=== PATIENT | female | born 1985 | race Caucasian/White ===

== ENCOUNTER → 2016-10-06 | Outpatient (CLI) | payer OTHER ==
--- NOTE | 2016-10-06 17:26 | US ---
October 06, [address] Coreas, Thank you for allowing us to see your patient Yola Szymanski for growth evaluation. As you kno w, she is a 31-year-old 1. Her due date is 12/11/2016 based on LMP consistent with first trim luz ultrasound. Her current gestational age based on this dating is 30 weeks 4 days. Her history is significant for chronic hypertension not requiring medication and a known maternal translocation. ULTRASOUND: Number of fetuses: 1 Placental location: anterior, no previa presentation: breech Heart Rate: 153 bpm Cervix: 3.8 cm viewed transabdominally Maximum vertical pocket: 3.9 cm Measurements: Biparietal diameter: 76 mm 30 weeks, 5 days Head circumference: 285 mm 31 weeks, 2 days Abdominal circumference: 267 mm 30 weeks, 6 days Femur length: 56 mm 29 weeks, 4 days Humerus length: 51 mm 30 weeks, 0 days Transcerebellar diameter: 39 mm 31 weeks, 5 days Average ultrasound age: 30 weeks, 5 days Estimated weight: 1574 gm weight percentile: 33 % ANATOMY anatomy was previously assessed. Today the following structures were visualized and appeared n ormal: lateral ventricle measuring 7 mm, 4-chamber heart view, left and right ventricular outflow tr acts, stomach, bilateral kidneys, bladder. IMPRESSION: 1. Intrauterine at 30 weeks, 4 days; UMER of 12/11/2016. 2. growth is appropriate size for dates. 3. anatomy was previously assessed and today's ultrasound continues to provide reassurance of normal appearing anatomy. 4. Chronic hypertension. Blood pressure in our office today was 123/84. She is not on any medicati ons for her blood pressure, but is on daily low-dose aspirin. She is scheduled to start NSTs in 2 we eks. We reviewed risks for preeclampsia and IUGR. RECOMMENDATIONS: -continue daily baby aspirin -one final growth ultrasound at ~34 weeks -delivery at 39 weeks if she remains stable Thank you for allowing us the opportunity to evaluate your patient. Should you have any further ques tions or concerns please do not hesitate to contact me. Approximately 15 minutes were spent with the patient, of which 10 minutes were spent in [id number] consultation discussing hypertension in . Renetta Moore M.D., Ph.D. Diagnosis Department of Obstetrics and Gynecology [facility]
--- NOTE | 2016-10-07 00:32 | US ---
Follow-Up Obstetrical Sonography CLINICAL HISTORY: 31-year-old female who presents for follow-up anatomic survey and biometry a ssessment, with an amniocentesis revealing that the fetus does not have a maternal translocation. Th ere is also a maternal history of chronic hypertension. TECHNIQUE: A curvilinear 5-megahertz transducer was used to sonographically evaluate the fetus and t he placenta. M-mode Doppler was used. Dr. Renetta Moore is present. COMPARISON STUDY: Obstetrical sonography, dated September 05, 2016. LMP: March 06, 2016, indicating an age of 30 weeks, 4 days, and an estimated date of delivery of Gio 2016. FINDINGS: Again, there is a single viable intrauterine gestation, with the fetus currently breech in presentation. The placenta is anteriorly situated, with no previa. The maternal cervical length me asures 3.9 cm, measured transabdominally. The amniotic fluid volume is appropriate, with a maximal v ertical pocket of 4 cm. The heart rate is 153 bpm. A anatomic survey has been performed in the past. On today's study, the lateral ventricular di ameter is normal, measuring 7.1 mm. There is a four- chambered heart, with interventricular septum a nd right and left outflow tracts, stomach, right and left kidneys, and urinary bladder. The ge nder is believed to be female. biometry is as follows: The biparietal diameter is 76 mm, corresponding to an age of 30 weeks, 5 days, +/- 3 weeks, 1 day, wh ich is at the 42nd percentile. The head circumference is 285 mm, corresponding to an age of 31 weeks, 2 days, +/- 3 weeks, 0 days, w hich is at the 32nd percentile. The abdominal circumference is 267 mm, corresponding to an age of 30 weeks, 6 days, +/- 3 weeks, 0 da ys, which is at the 54th percentile. The femur length is 56 mm, corresponding to an age of 29 weeks, 4 days, +/- 2 weeks, 1 day, which is at the 12th percentile. The humerus length is 51 mm, corresponding to an age of 30 weeks, 0 days. The transverse cerebellar diameter is 39 mm, corresponding to an age of 31, weeks 5 days, +/- 1 week, 2 days. The composite gestational age is 30 weeks, 5 days, which is concordant with menstrual dating and demo nstrating appropriate interval growth since the previous study. The estimated weight is 1574 gm, +/- 230 gm, which is 3 lbs., 8 oz., +/- 8 ounces, which is at the 33rd percentile. The head circumference to abdominal circumference ratio is normal, measuring 1.07. The femur length to biparietal diameter ratio is 73%, which is normal. The femur length to abdominal circumference ratio is normal, measuring 21%. IMPRESSION: There is a single viable intrauterine gestation, with no overt structural anomaly having concordant biometry and appropriate interval growth since September 05, 2016. Please also refer to Dr. Moore' separate assessments and specific recommendations for follow up.
== END ==
LOC: FIMAGING 14:27
PROVIDERS: ATTEND Obstetrics & Gynecology
DX: O10.013 Pre-existing essential hypertension complicating pregnancy, third trimester (principal); Z3A.30 30 weeks gestation of pregnancy; Z82.79 Family history of other congenital malformations, deformations and chromosomal abnormalities

== ENCOUNTER → 2016-10-31 | Outpatient (CLI) | payer OTHER ==
--- NOTE | 2016-10-31 15:27 | US ---
October 31, [address] Coreas, Thank you for requesting consultation and a follow up ultrasound for your patient, Mrs. Nicolás alcantar. As you know, Yola is a 31 year old G 1, P 0 . Her due date is 12/11/16 by LMP and [facility]. Her current gestational age based on this dating is is 34 weeks 1 days. She is s een today for a follow up assessment of growth secondary to CHTN. She had one episode of scotomata o carli a week ago that did not recur. She denies headaches. She reports good movement and is rafa eduled for NST following our appointment. Her BP in our office was 134/90. Her most recent labs incl uding 24 hour urine were normal. ULTRASOUND Number of fetuses: 1 Placental location: Anterior presentation: Cephalic Heart Rate: 143 bpm Cervix: Not well-visualized secondary to early gestational age Maximum Vertical Pocket: 3.2 cm Measurements: Biparietal diameter: 84 mm 33 weeks, 6 days Head circumference: 312 mm 35 weeks, 0 days Abdominal circumference: 297 mm 33 weeks, 5 days Femur length: 64 mm 33 weeks, 1 days Humerus length: 57 mm 33 weeks, 1 days Transcerebellar diameter: 44 mm 34 weeks, 2 days Average age by ultrasound: 34 weeks, 0 days Estimated weight: 2242 gm weight percentile: 30 % ANATOMY anatomy was previously assessed. Today the following structures were visualized and appeared n ormal: Stomach, limited views of the four-chamber heart, bladder, lateral ventricle, and bilateral k idneys. IMPRESSION: 1. Intrauterine at 34 weeks, 1 days; UMER of 12/11/16. 2. growth is appropriate size for dates. 3. anatomy was previously assessed and today's ultrasound continues to provide reassurance of normal appearing anatomy. 4. Normal amniotic fluid volume 5. Chronic hypertension RECOMMENDATIONS: I was pleased to review today's ultrasound with your patient. I reassured her that growth is normal at the 30 %ile for this gestational age. The amniotic fluid volume is normal. We performed a review of the anatomy which was limited by gestational age and position, but no overt abnormali ties were noted. Yola is doing well from a blood pressure standpoint and her most recent evaluation for superimpose d preeclampsia was negative. We reviewed signs/symptoms worrisome for preeclampsia and is aware to s anvik your medical attention should she have them. We discussed that only if her BP was severe range w ould she require antihypertensive management (and assessment of preeclampsia). Currently, delivery i s planned at 38 weeks. She knows to continue all care and antepartum testing as you have previously directed. Future ultrasound and consultation is available at your discretion. Thank you for allowing us the opportunity to evaluate your patient. Should you have any further ques tions or concerns please do not hesitate to contact me. Approximately 15 minutes were spent with the patient and 10 minutes were spent in face to face consu ltation. Ivett Lopes MD Direct Support Staff Member Maternal Medicine Diagnosis Department of Obstetrics & Gynecology [facility]
--- NOTE | 2016-10-31 17:31 | US ---
Obstetric Ultrasound History: 31-year-old with estimated gestational age of 34 weeks 1 day and EDC of December 11, 2016. Comparison: OB ultrasound October 06, 2016. Findings: Number: 1 Presentation: Vertex Placental location: Anterior. No previa. Cervix: Obscured by positioning. Maximum vertical pocket: 3.2 cm Biometry: Biparietal diameter: 84 mm 33 weeks, 6 days Head circumference: 312 mm 35 weeks, 0 days Abdominal circumference: 297 mm 33 weeks, 5 days Femur length: 64 mm 33 weeks, 1 days Humerus length: 57 mm 33 weeks, 1 days Transcerebellar diameter: 44 mm 34 weeks, 2 days Average ultrasound age: 34 weeks, 0 days EDC based on today's average ultrasound age: December 12, 2016 Estimated weight is 2242 gms +/- 327 gms. The estimated weight percentile is 30 % based o n previous dating. Detailed anatomic survey was previously performed and is not repeated. heart rate is 143. The left-sided stomach, four-chamber heart, lateral ventricle, posterior fossa, kidneys, and bladde r are visualized and normal. Impression: 1. Living duval . Size concordant with dates. 2. Unremarkable anatomy. Please see separate dictation for consultation performed by Ivett Lopes MD, the same day.
== END ==
LOC: FIMAGING 14:35
PROVIDERS: ATTEND Obstetrics & Gynecology
DX: O16.3 Unspecified maternal hypertension, third trimester (principal); Z3A.34 34 weeks gestation of pregnancy

== ENCOUNTER 2016-11-28 17:22 | Inpatient (IN) | payer OTHER ==
[2016-11-28] MEDS ORDERED: ACETAMINOPHEN 325 MG TAB PO PRN (17:46)
[2016-11-28] MEDS ORDERED: diphenhydrAMINE 25 MG CAP PO PRN (17:47)
[2016-11-28] MEDS ORDERED: CALCIUM CARBONATE 500 MG CHEWABLE TAB PO PRN (17:47)
[2016-11-28] MEDS ORDERED: LABETALOL HCL 100 MG TAB PO ONE ×2 (18:00→20:00)
[2016-11-28] MEDS ORDERED: TERBUTALINE SULFATE 1 MG/ML VIAL IV PRN (18:28)
[2016-11-28] MEDS ORDERED: OXYTOCIN/RINGERS LACTATE 1,000 ML IV PRN (18:28)
[2016-11-28] MEDS ORDERED: LR 1,000 ML IV PRN (18:28)
[2016-11-28 18:54] LABS: % IMMATURE GRANULYOCYTES 0.7 % (0.0-1.1); ABSOLUTE IMMATURE GRANULOCYTES 0.06 10^3/uL (0.00-0.10); ADD DIFF? NO; ADD MORPH? NO; ADD SCAN? NO; ATYPICAL LYMPHOCYTE FLAG 0 (0-99); FRAGMENT RBC FLAG 0 (0-99); HEMATOCRIT 35.1 % (38.0-47.0); HEMOGLOBIN 12.5 g/dL (12.6-16.3); LEFT SHIFT FLG 0 (0-99); LIPEMIA HEMOLYSIS FLAG 90 (0-99); MEAN CELL HEMOGLOBIN 33.1 pg (27.9-34.1); MEAN CELL HEMOGLOBIN CONCENTR. 35.6 g/dL (32.4-36.7); MEAN CELL VOLUME 92.9 fL (81.5-99.8); MEAN PLATELET VOLUME 11.1 fL (8.7-11.7); PLATELET CLUMPS FLAG 0 (0-99); PLATELET COUNT 226 10^3/uL (150-400); RED BLOOD CELL COUNT 3.78 10^6/uL (4.18-5.33); RED CELL DISTRIBUTION WIDTH 13.5 % (11.5-15.2)
[2016-11-28 19:15] LABS: ALANINE AMINOTRANSFERASE 26 IU/L (9-52); ASPARTATE AMINOTRANSFERASE 21 IU/L (14-46); BILIRUBIN,TOTAL 0.5 mg/dL (0.1-1.4); BILIRUBIN-CONJUGATED 0.2 mg/dL (0.0-0.5); BILIRUBIN-UNCONJUGATED 0.3 mg/dL (0.0-1.1); CREATININE 0.7 mg/dL (0.6-1.0); GLOMERULAR FILTRATION RATE > 60; LACTATE DEHYDROGENASE 389 IU/L (313-618); URIC ACID 6.6 mg/dL (2.5-6.8)
[2016-11-28] MEDS ORDERED: LIDOCAINE 1% 30 ML SDV ONE (19:49)
[2016-11-28] MEDS ORDERED: AMMONIA AROMATIC 1 EACH AMP IH ONE (19:49)
[2016-11-28] MEDS ORDERED: OXYTOCIN 10 UNIT/ML VIAL ONE (19:50)
[2016-11-28] MEDS ORDERED: MISOPROSTOL 200 MCG TAB ONE (19:50)
[2016-11-28] MEDS ORDERED: TERBUTALINE SULFATE 1 MG/ML VIAL ONE (19:50)
[2016-11-29] MEDS ORDERED: OXYTOCIN/LR *STANDARD DOSE PROTOCOL IV SCH (04:00)
--- NOTE | 2016-11-29 07:56 | OBPROG ---
OBG Progress Note Assessment/Plan: Assessment: 31 y/o at 38+2 weeks EGA admitted for IOL for CHTN Plan: 1) status reassuring 2) Labor: IOL progressing, diaz bulb still above cervix, but bulging, 3cm dilated. Continue with pitocin. 3) GBS negative 4) CHTN: BP's mild, PIH labs normal. 5) Pain: No issues. 11/29/16 07:53 Subjective: Feels well, feeling ctx but not painful. Objective: 11/28/16 18:30 11/28/16 18:30 Patient ABO/Rh O NEGATIVE 11/28/16 18:30 Uric Acid 6.6 mg/dL (2.5-6.8) 11/28/16 18:30 Total Bilirubin 0.5 mg/dL (0.1-1.4) 11/28/16 18:30 Conjugated Bilirubin 0.2 mg/dL (0.0-0.5) 11/28/16 18:30 Unconjugated Bilirubin 0.3 mg/dL (0.0-1.1) 11/28/16 18:30 AST 21 IU/L (14-46) 11/28/16 18:30 ALT 26 IU/L (9-52) 11/28/16 18:30 Lactate Dehydrogenase 389 IU/L (313-618) 11/28/16 18:30 Temp Pulse Resp BP Pulse Ox 68 166/95 H 11/28/16 20:14 11/28/16 20:14 - SVE Dilation (cm): 3 Effacement (%): Less than 50 Station: -3 Current Contraction Pattern: Regular FHR (bpm): 130 FHR Pattern Variability: Moderate FHR Category: 1 ICD10 Worksheet Patient Problems: Problems Problem Status Onset Chronic hypertension affecting Acute - ICD10 Problem Qualifiers (1) Chronic hypertension affecting
--- NOTE | 2016-11-29 09:11 | OBPROG ---
OBG Progress Note Assessment/Plan: Assessment: 31 y/o at 38+2 weeks EGA admitted for IOL for CHTN Plan: 1) status reassuring 2) Labor: IOL progressing, diaz bulb out, 3-4cm dilated. AROM completed w/ no complications. Continue with pitocin. 3) GBS negative 4) CHTN: BP's mild, PIH labs normal. 5) Pain: No issues. 11/29/16 09:10 Subjective: Pt feeling well. Objective: 11/28/16 18:30 11/28/16 18:30 Patient ABO/Rh O NEGATIVE 11/28/16 18:30 Uric Acid 6.6 mg/dL (2.5-6.8) 11/28/16 18:30 Total Bilirubin 0.5 mg/dL (0.1-1.4) 11/28/16 18:30 Conjugated Bilirubin 0.2 mg/dL (0.0-0.5) 11/28/16 18:30 Unconjugated Bilirubin 0.3 mg/dL (0.0-1.1) 11/28/16 18:30 AST 21 IU/L (14-46) 11/28/16 18:30 ALT 26 IU/L (9-52) 11/28/16 18:30 Lactate Dehydrogenase 389 IU/L (313-618) 11/28/16 18:30 Temp Pulse Resp BP Pulse Ox 68 166/95 H 11/28/16 20:14 11/28/16 20:14 - SVE Dilation (cm): 4 Effacement (%): 50 Station: -3 Current Contraction Pattern: Regular FHR (bpm): 130 FHR Pattern Variability: Moderate FHR Category: 1 Membranes: AROM Amniotic Fluid Color: Clear ICD10 Worksheet Patient Problems: Problems Problem Status Onset Chronic hypertension affecting Acute - ICD10 Problem Qualifiers (1) Chronic hypertension affecting
[2016-11-29] MEDS ORDERED: BUPIVACAINE 0.25% 30 ML SDV ONE (12:17)
[2016-11-29] MEDS ORDERED: fentaNYL 2MCG/ML/BUP 0.1% RTU 100 ML BAG EP ONE (12:17)
[2016-11-29] MEDS ORDERED: PHENYLEPHRINE HCL 100 MCG/ML SYR ONE (12:17)
[2016-11-29] MEDS ORDERED: fentaNYL 100 MCG/2 ML INJ ONE (12:18)
--- NOTE | 2016-11-29 12:56 | OBPROG ---
OBG Progress Note Assessment/Plan: Assessment: 31 y/o at 38+2 weeks EGA admitted for IOL for CHTN Plan: 1) status reassuring w/ cat 1 FHT 2) Labor: Progressing, CX more effaced. Continue with pitocin for induction. 3) GBS negative 4) CHTN: BP's mild, PIH labs normal. 5) Pain: controlled well w/ AALN. 11/29/16 12:55 Subjective: Pt has no complaints now; she just got a ALAN, and her pain is much improved. Objective: 11/28/16 18:30 11/28/16 18:30 Patient ABO/Rh O NEGATIVE 11/28/16 18:30 Uric Acid 6.6 mg/dL (2.5-6.8) 11/28/16 18:30 Total Bilirubin 0.5 mg/dL (0.1-1.4) 11/28/16 18:30 Conjugated Bilirubin 0.2 mg/dL (0.0-0.5) 11/28/16 18:30 Unconjugated Bilirubin 0.3 mg/dL (0.0-1.1) 11/28/16 18:30 AST 21 IU/L (14-46) 11/28/16 18:30 ALT 26 IU/L (9-52) 11/28/16 18:30 Lactate Dehydrogenase 389 IU/L (313-618) 11/28/16 18:30 Temp Pulse Resp BP Pulse Ox 68 166/95 H 11/28/16 20:14 11/28/16 20:14 - SVE Dilation (cm): 4 Effacement (%): 80 Station: -2 Current Contraction Pattern: Regular FHR (bpm): 130 FHR Pattern Variability: Moderate FHR Category: 1 ICD10 Worksheet Patient Problems: Problems Problem Status Onset Chronic hypertension affecting Acute - ICD10 Problem Qualifiers (1) Chronic hypertension affecting
[2016-11-29] MEDS ORDERED: ONDANSETRON 4 MG/2 ML VIAL IVP PRN (13:24)
[2016-11-29] MEDS ORDERED: PHENYLEPHRINE HCL 100 MCG/ML SYR IVP PRN (13:24)
--- NOTE | 2016-11-29 13:28 | POSTANESTH ---
Post Anesthetic Evaluation Cardiovascular Status: Normal, Stable Respiratory Status: Normal, Stable, Similar to Pre-op Cond. Level of Consciousness/Mental Status: Can Participate in Eval, Alert and Oriented Pain Control: Adequate, Prn Tx Ordered Nausea/Vomiting Control: Adequate, Prn Tx Ordered Complications Possibly Related to Anesthesia: None Noted (Tolerated CSE well, stable, comfortable.)
[2016-11-29] MEDS ORDERED: fentaNYL 2MCG/ML/BUP 0.1% RTU 100 ML EP SCH (13:30)
[2016-11-29] MEDS ORDERED: LR 500 ML IV SCH (13:30)
--- NOTE | 2016-11-29 13:31 | PREANESOB ---
Obstetric Pre-Anesthesia Info - General Info Proposed Procedure: Labor and delivery with pitocin. : 1 Para: 0 WBD: 38 - Info Status: Full Term Monitors: External FHR Baseline (bpm): 130 FHR Pattern: Reassuring - Labor Status Cervical Dilation per last OB SVE: 4 Station per last OB SVE: -2 Amniotic Fluid Color: Clear Pitocin: In Use PIH: Moderate Indications for Labor Analgesia: Induction of Labor, Pain Control Labor Epidural: Proposed Anesthesia ROS: Hypertension. Allergies/Adverse Reactions: Allergy/AdvReac Type Severity Reaction Status Date / Time No Known Allergies Allergy Unverified 11/28/16 17:45 Home Medications: Medication Instructions Recorded Aspirin [Aspirin 81mg (*)] DAILY 11/28/16 Labetalol HCl [Trandate 100 mg (*)] 100 mg PO BID 11/28/16 Vit27&Calcium/Iron/FA 1 each PO DAILY 11/28/16 [ Rx 1 Tablet (RX)] Visit Medications: Generic Name Dose Route Start Last Admin Trade Name Freq PRN Reason Stop Dose Admin Acetaminophen 650 mg 11/28/16 17:46 Tylenol PO 05/27/17 17:45 Q4H PRN Pain, Mild/Fever, Can Take PO Calcium Carbonate 1,000 mg 11/28/16 17:47 Tums PO 05/27/17 17:46 Q4H PRN HEARTBURN Diphenhydramine HCl 25 mg 11/28/16 17:47 Benadryl PO 05/27/17 17:46 HS PRN SLEEP/INSOMNIA Lactated Ringer's 1,000 mls @ 0 mls/hr 11/28/16 18:28 11/29/16 04:08 Lr IV 05/27/17 18:27 1,000 mls PRN PRN Administration SEE PROTOCOL CONDITIONS Protocol Per Protocol Oxytocin/Lactated Ringer's 1,000 mls @ 150 mls/hr 11/28/16 18:28 Pitocin 20 Units/Lr (Premix) IV PRN PRN Post- bleeding Oxytocin/Lactated Ringer's 500 mls @ 0 mls/hr 11/29/16 04:00 11/29/16 04:08 Pitocin 30 Units/Lr (Premix) IV 05/28/17 03:59 500 mls CONT NOBLE Administration Protocol Per Protocol Fentanyl/Bupivacaine HCl 100 mls @ 0 mls/hr 11/29/16 13:30 Fentanyl/Bupivacaine/Ns 2 Mcg/Ml 0.1% (Premix EP 12/09/16 13:29 CONT NOBLE Protocol As Directed Lactated Ringer's 500 mls @ 0 mls/hr 11/29/16 13:30 Lr IV 05/28/17 13:29 CONT NOBLE As Directed Ibuprofen 600 mg 11/28/16 18:28 Motrin PO 05/27/17 18:27 Q6HRS PRN post , inflammation Ondansetron HCl 4 mg 11/29/16 13:24 Zofran IVP 05/28/17 13:23 Q4HRS PRN Nausea/Vomiting, Can't Take PO Phenylephrine HCl 100 mcg 11/29/16 13:24 Brice-Synephrine IVP 05/28/17 13:23 .Q2M PRN Hypotension Terbutaline Sulfate 0.25 mg 11/28/16 18:28 Brethine IV 05/27/17 18:27 ONCE PRN Tachysystole Discontinued Medications Generic Name Dose Route Start Last Admin Trade Name Freq PRN Reason Stop Dose Admin Ammonia (Aromatic Spirit) Confirm 11/28/16 19:49 Ammonia Aromatic Administered 11/28/16 19:50 Dose 1 each IH .STK-MED ONE Bupivacaine HCl Confirm 11/29/16 12:17 Sensorcaine 0.25% Sdv Administered 11/29/16 12:18 Dose 30 ml .ROUTE .STK-MED ONE Fentanyl Confirm 11/29/16 12:18 Sublimaze Administered 11/29/16 12:19 Dose 100 mcg .ROUTE .STK-MED ONE Fentanyl/Bupivacaine HCl Confirm 11/29/16 12:17 Fentanyl/Bupivacaine/Ns 2 Mcg/Ml 0.1% (Premix Administered 11/29/16 12:18 Dose 100 ml EP .STK-MED ONE Labetalol HCl 100 mg 11/28/16 18:00 11/28/16 20:10 Trandate PO 11/28/16 18:01 Not Given ONCE ONE Labetalol HCl 100 mg 11/28/16 20:00 11/28/16 20:14 Trandate PO 11/28/16 20:01 100 mg ONCE ONE Administration Lidocaine HCl Confirm 11/28/16 19:49 Lidocaine Hcl 1% Administered 11/28/16 19:50 Dose 30 ml .ROUTE .STK-MED ONE Misoprostol Confirm 11/28/16 19:50 Cytotec Administered 11/28/16 19:51 Dose 1,000 mcg .ROUTE .STK-MED ONE Oxytocin Confirm 11/28/16 19:50 Pitocin Administered 11/28/16 19:51 Dose 20 unit .ROUTE .STK-MED ONE Phenylephrine HCl Confirm 11/29/16 12:17 Brice-Synephrine Administered 11/29/16 12:18 Dose 1,000 mcg .ROUTE .STK-MED ONE Terbutaline Sulfate Confirm 11/28/16 19:50 Brethine Administered 11/28/16 19:51 Dose 1 mg .ROUTE .STK-MED ONE - Anesthesia History Response to Local Anesthetics: Normal - Focused Exam Latest Vital Signs (Nursing): Temp Pulse Resp BP Pulse Ox 68 166/95 H 11/28/16 20:14 11/28/16 20:14 Blood Pressure: 132/80 Heart Rate: 68 Height/Weight (Nursing): Height 170.18 cm Weight 77.111 kg Physical Exam: Within normal limits. ASA Status: II Labs: 11/28/16 18:30 11/28/16 18:30 Patient ABO/Rh O NEGATIVE 11/28/16 18:30 Uric Acid 6.6 mg/dL (2.5-6.8) 11/28/16 18:30 Total Bilirubin 0.5 mg/dL (0.1-1.4) 11/28/16 18:30 Conjugated Bilirubin 0.2 mg/dL (0.0-0.5) 11/28/16 18:30 Unconjugated Bilirubin 0.3 mg/dL (0.0-1.1) 11/28/16 18:30 AST 21 IU/L (14-46) 11/28/16 18:30 ALT 26 IU/L (9-52) 11/28/16 18:30 Lactate Dehydrogenase 389 IU/L (313-618) 11/28/16 18:30 - Plan Anesthetic Plan: CSE Consent Signed and on Chart: Yes
--- NOTE | 2016-11-29 15:03 | OBPROG ---
OBG Progress Note Assessment/Plan: Assessment: 31 y/o at 38+2 weeks EGA admitted for IOL for CHTN Plan: 1) status reassuring w/ cat 1 FHT 2) Labor: Progressing well 3) GBS negative 4) CHTN: BP's mild, PIH labs normal. 5) Pain: controlled well w/ ALAN. 11/29/16 15:02 Subjective: Pt feeling well, a little more pressure. Objective: 11/28/16 18:30 11/28/16 18:30 Patient ABO/Rh O NEGATIVE 11/28/16 18:30 Uric Acid 6.6 mg/dL (2.5-6.8) 11/28/16 18:30 Total Bilirubin 0.5 mg/dL (0.1-1.4) 11/28/16 18:30 Conjugated Bilirubin 0.2 mg/dL (0.0-0.5) 11/28/16 18:30 Unconjugated Bilirubin 0.3 mg/dL (0.0-1.1) 11/28/16 18:30 AST 21 IU/L (14-46) 11/28/16 18:30 ALT 26 IU/L (9-52) 11/28/16 18:30 Lactate Dehydrogenase 389 IU/L (313-618) 11/28/16 18:30 Temp Pulse Resp BP Pulse Ox 68 132/80 H 11/29/16 13:36 11/29/16 13:36 - SVE Dilation (cm): 10 Effacement (%): 100 Station: +1 (LOP position.) Current Contraction Pattern: Regular FHR (bpm): 130 FHR Pattern Variability: Moderate FHR Category: 2 (occasional early decels and variables) ICD10 Worksheet Patient Problems: Problems Problem Status Onset Chronic hypertension affecting Acute - ICD10 Problem Qualifiers (1) Chronic hypertension affecting
[2016-11-29] MEDS ORDERED: HYDROCORTISONE 0.5% CREAM TP PRN (16:47)
[2016-11-29] MEDS ORDERED: SIMETHICONE 80 MG TAB CHEW PO PRN (16:47)
[2016-11-29] MEDS: IBUPROFEN 600 MG TAB PO PRN (19:38)
--- NOTE | 2016-11-29 20:00 | OBPROC ---
- Labor and Delivery Onset of Contractions Date: 11/29/16 Onset of Contractions Time: 12:45 Onset of Contractions Type: Induced Rupture of Membranes Date: 11/29/16 Rupture of Membranes Time: 09:00 Rupture of Membranes Type: Artificial Amniotic Fluid Color: Clear Dilation Complete Time: 14:56 Delivery Type: Spontaneous Placenta Delivery Date: 11/29/16 Placenta Delivery Time: 16:27 Episiotomy/Laceration: 1st Degree, Periurethral Repair: 3-0, Vicryl EBL: 250 cc Complications: Other (Specify) (left nuchal arm, loop of cord next to arm and wrapped around leg) - Medications Labor Augmentation/Induction Meds Used: Pitocin Labor Augmentation/Induction Indication: Medical (CHTN on labetalol) Anesthesia: Epidural - Info Infant A Delivery Date: 11/29/16 Delivery Time: 16:23 Sex of Infant: Female Score (1 Min): 8 Score (5 Min): 9 (Patient pushed about 30 minutes and quickly progressed, delivering a viable female infant in ROZ position with left compound arm ( posterior), baby placed on maternal abdomen, delayed cord clamping x 2 minutes, then cord clamped x 2 and cut. Cord blood obtained. Placenta delivered easily and intact. Uterine massage completed, pitocin given at 30U/500cc, cervix and vaginal donovan intact. Small 1st degree noted at 0700 and repaired with running locked stitch. Small left periurethral tear repair with interrupted stitches. All hemostatic. Mother and in stable and good condition.)
[2016-11-29] MEDS ORDERED: LABETALOL HCL 100 MG TAB PO SCH (21:00)
[2016-11-29] MEDS: DOCUSATE SODIUM 100 MG CAP PO PRN (21:06)
[2016-11-29] MEDS: HYDROCODONE/APAP 5/325 TAB PO PRN (21:06)
[2016-11-30 02:08] VITALS: RESP 16
[2016-11-30] MEDS: IBUPROFEN 600 MG TAB PO PRN ×3 (04:29→18:08)
[2016-11-30] MEDS: HYDROCODONE/APAP 5/325 TAB PO PRN ×3 (05:49→15:18)
--- NOTE | 2016-11-30 08:44 | SOAPPROG ---
SOAP Progress Note Assessment/Plan: Assessment: PPD#1 s/p Rub imm, Rh neg, Rhogam pending s/p tdap and flu CHTN, no meds currently and BP within normal range Plan: Routine pp care Rhogam Continue to monitor BPs Home PPD#2 11/30/16 08:42 Subjective: Feeling well. Lochia appropriate. Ambulating and voiding. Baby is latching. No PIH symptoms. did take one norco for perineal pain which is feeling sore Objective: Vital Signs Temp Pulse Resp BP Pulse Ox 36.7 C 74 16 123/83 H 97 11/30/16 07:48 11/30/16 07:48 11/30/16 07:48 11/30/16 07:48 11/30/16 07:48 Laboratory Results 11/30/16 04:35 11/28/16 18:30 11/29/16 11/30/16 12/01/16 05:59 05:59 05:59 Intake Total 1500 Output Total 700 Balance 800 Gen: NAD, alert awake Breasts: soft Resp: unlabored CV: reg rate Abd: mod distention, soft, uterus firm below U, nontender Ext: no edema ICD10 Worksheet Patient Problems: Problems Problem Status Onset Chronic hypertension affecting Acute
[2016-11-30] MEDS: DOCUSATE SODIUM 100 MG CAP PO PRN ×2 (09:48→21:54)
[2016-12-01] MEDS: IBUPROFEN 600 MG TAB PO PRN ×2 (00:11→09:08)
--- NOTE | 2016-12-01 08:59 | OBPROG ---
OBG Progress Note Assessment/Plan: Assessment: 31 y/o PPD#2 s/p - doing well Plan: Discharge home Rub imm, Rh neg, s/p rhogam s/p tdap and flu CHTN, no meds currently and BP within normal range F/U in 1 week for BP check 12/01/16 08:59 Subjective: Pt feeling well, pain well controlled with motrin, lochia diminishing, breast feeding progressing. Objective: 11/30/16 04:35 11/28/16 18:30 Patient ABO/Rh O NEGATIVE 11/29/16 18:06 Uric Acid 6.6 mg/dL (2.5-6.8) 11/28/16 18:30 Total Bilirubin 0.5 mg/dL (0.1-1.4) 11/28/16 18:30 Conjugated Bilirubin 0.2 mg/dL (0.0-0.5) 11/28/16 18:30 Unconjugated Bilirubin 0.3 mg/dL (0.0-1.1) 11/28/16 18:30 AST 21 IU/L (14-46) 11/28/16 18:30 ALT 26 IU/L (9-52) 11/28/16 18:30 Lactate Dehydrogenase 389 IU/L (313-618) 11/28/16 18:30 Temp Pulse Resp BP Pulse Ox 37.0 C 74 16 134/88 H 94 11/30/16 20:00 11/30/16 20:00 11/30/16 20:00 11/30/16 20:00 11/30/16 20:00 Uterine Position/Fundal Height: Umbilicus -2 Uterine Tone: Firm ICD10 Worksheet Patient Problems: Problems Problem Status Onset Chronic hypertension affecting Acute - ICD10 Problem Qualifiers (1) Chronic hypertension affecting
[2016-12-01] MEDS: DOCUSATE SODIUM 100 MG CAP PO PRN (09:08)
[2016-12-01 09:48] VITALS: BP 131/87; PULSE 85; TEMP 98.3; O2SAT 95
== END 2016-12-01 12:30 | disposition home or self-care (01) | DRG 775 ==
LOC: FLD 17:22 → FOB 11-29 19:55
PROVIDERS: ADMIT Obstetrics & Gynecology; ATTEND Obstetrics & Gynecology
PROC: 0HQ9XZZ Repair Perineum Skin, External Approach (ICD-10-PCS; principal; 2016-11-29)
PROC: 3E033VJ Introduction of Other Hormone into Peripheral Vein, Percutaneous Approach (ICD-10-PCS; principal; 2016-11-29)
PROC: 3E0234Z Introduction of Serum, Toxoid and Vaccine into Muscle, Percutaneous Approach (ICD-10-PCS; principal; 2016-11-29)
PROC: 10E0XZZ Delivery of Products of Conception, External Approach (ICD-10-PCS; principal; 2016-11-29)
PROC: 10907ZC Drainage of Amniotic Fluid, Therapeutic from Products of Conception, Via Natural or Artificial Opening (ICD-10-PCS; principal; 2016-11-29)
DX: O10.919 Unspecified pre-existing hypertension complicating pregnancy, unspecified trimester (principal); O70.0 First degree perineal laceration during delivery; O69.82X0 Labor and delivery complicated by other cord entanglement, without compression, not applicable or unspecified; Z67.91 Unspecified blood type, Rh negative; Z3A.38 38 weeks gestation of pregnancy; Z37.0 Single live birth
CPT/HCPCS: J2370; J2590; J3010; J3105

== ENCOUNTER → 2018-11-12 | Outpatient (CLI) | payer OTHER | LOC: FIMAGING 07:29 | PROVIDERS: ATTEND Obstetrics & Gynecology | DX: O10.012 Pre-existing essential hypertension complicating pregnancy, second trimester (principal); Z3A.19 19 weeks gestation of pregnancy ==

== ENCOUNTER → 2019-01-29 | Outpatient (CLI) | payer OTHER | LOC: FIMAGING 08:38 | PROVIDERS: ATTEND Obstetrics & Gynecology | DX: O10.913 Unspecified pre-existing hypertension complicating pregnancy, third trimester (principal); Z3A.30 30 weeks gestation of pregnancy ==